=== PATIENT | male | born 1960 | race Caucasian/White ===

== ENCOUNTER 2024-04-08 10:11 | Day surgery (SDC) | payer MEDICARE ==
[2024-04-08] MEDS ORDERED: Sensorcaine 0.25% 10 ML ONE (11:02)
[2024-04-08] MEDS ORDERED: Marcaine Mpf 0.5% Vial 30 Ml ONE (11:57)
[2024-04-08] MEDS ORDERED: XYLOCAINE 1% HCL 20 ML MDV ONE (11:57)
[2024-04-08] MEDS ORDERED: BACIGUENT 30 GM ONE (12:25)
[2024-04-08 12:40] VITALS: RESP 16
[2024-04-08 12:53] VITALS: BP 119/64; PULSE 78; TEMP 97.5; O2SAT 98
--- NOTE | 2024-04-09 15:06 | OP ---
SURGERY DATE/TIME: 04/08/2024 7866 - [id number] PREOPERATIVE DIAGNOSIS: Right hand lesion. POSTOPERATIVE DIAGNOSIS: Right hand lesion. PROCEDURE: Excision of right hand lesion measuring 1.5 x 4 cm. SURGEON: Evaristo Jain MD ANESTHESIA: Local. PATIENT CONDITION: Stable. COMPLICATIONS: None. SPECIMENS: Right hand lesion, stitch leon proximal. INDICATIONS: The patient is a 63-year-old male that has right hand lesion chronically that is concerning for a skin cancer. On examination, it about a 1 cm nodular area. Discussion had with the patient. Recommendation for biopsy and then, consider excision but ultimately he just desires excisional biopsy. A discussion was had with the patient. Risks of infection, bleeding, cosmetic deformity, that there is limited skin on the hand and there will be some cosmetic deformity and alternative would be a skin graft. He elected to proceed with excision. FINDINGS: A 1.5 x 4 cm excision. DESCRIPTION OF PROCEDURE AND FINDINGS: Patient brought to the operating room. Routinely positioned, prepared. The lesion had been marked in preoperative holding area. A time-out was performed. The lesion was marked out with 4 mm margins. This is at the right dorsum of the hand distal to the wrist create and local anesthetic injected, lidocaine, Marcaine. The lesion is elliptically excised, 1.5 x 4 cm down to the subcutaneous space. A small amount of flap raised on either side 1 cm for relatively tension-free closure, which was closed with interrupted nylon 3-0 sutures. There was good hemostasis. The lesion had been sent with a stitch marking proximal. The patient tolerated the procedure well.
== END 2024-04-08 13:02 | disposition home or self-care (01) ==
LOC: SDC 10:11
PROVIDERS: ATTEND Surgery
DX: D17.21 Benign lipomatous neoplasm of skin and subcutaneous tissue of right arm (principal); L98.9 Disorder of the skin and subcutaneous tissue, unspecified
CPT/HCPCS: A9270-GY